=== PATIENT | female | born 1985 | race Caucasian/White ===

== ENCOUNTER 2020-01-07 07:05 | Inpatient (IN) | payer OTHER, SELFPAY ==
[2017-08-01 10:05] VITALS: BMI 29.4
[2020-01-07] VITALS (43 sets, daily range): BP systolic 81–142; BP diastolic 47–103; PULSE 70–130; RESP 18; TEMP 36.9; O2SAT 86–100; BMI 29.6
[2020-01-07] MEDS: Lactated Ringers 1,000 ML 50 ML IV (07:25)
[2020-01-07 07:52] LABS: Absolute Lymphocyte Count 2.55 X10^3/uL (0.83-4.51); Absolute Neutrophil Count 9.3 X10^3/uL (2.0-7.7); Basophil# 0.05 X10^3/uL; Basophil% 0.4 % (0-1); Eosinophil# 0.13 X10^3/uL; Hematocrit 32.5 % (37-47); Hemoglobin 10.5 g/dL (12.0-15.0); Lymphocyte # 2.55 X10^3/ul (4.0); Lymphocyte % 18.8 % (19-41); Mean Corp Hgb Conc 32.3 g/dL (32-36); Mean Corpuscular Hgb 29.7 pg (27.0-32.0); Mean Corpuscular Volume 92.1 fL (81-99); Monocyte# 1.33 X10^3/uL; Monocyte% 9.8 % (0-10); NRBC Flagged by Analyzer 0 % (0-5); Neutrophil # 9.32 X10^3/uL (2.7-7.7); Neutrophil % 68.6 % (47-70); Platelet Count 202 K/mm3 (150-450); RBC Distribution Width CV 13.1 % (11.6-14.6); RBC Distribution Width SD 43.7 fl (35.1-43.9); Red Blood Count 3.53 M/mm3 (4.2-5.4); White Blood Count 13.6 K/mm3 (4.4-11.0)
[2020-01-07] MEDS: Oxytocin 30 units/NS 500 ml 30 UNITS/500 ML IV.SOLN IV (08:05)
--- NOTE | 2020-01-07 08:18 | HP.PCM_ITS ---
History Date of Admission: 08/01/17 Final MICHELLE: 01/10/20 Final MICHELLE Source: US <20 weeks Gestational age: 39 Weeks and 4 Days History of this : This is a 34 year-old, # 39.4 weeks, here for elective IOL Medical History: Medical History (Last Updated 01/07/20 @ 08:[address] 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, antepartum (Acute) O09.893, Z14.1 Allergies No Known Allergies Allergy (Verified 08/01/17 10:06) Home Medications: Home Medications Ibuprofen [Motrin] 600 mg PO Q6H PRN #60 tablet 08/01/17 Vits [Prenatabs FA ] 1 tablet PO DAILY 08/01/17 Smoking Status: Former smoker Alcohol: None Number of Fetus(es): 1 History Past Pregnancies: Past Pregnancies Delivery Date Name GA/ Weeks Outcome Route Wt Sex Labor Length Anesthesia Delivery Location Provider FOB Expected Infant Delivery Method: Spontaneous Vaginal Review of Systems Constitutional: Denies: Anorexia Eyes: Denies: Blurred vision Cardiovascular: Denies: Chest Pain Physical Exam General: Alert, Oriented x3 Abdomen: Soft, Non Tender, Gravid Neurological: Cranial nerves II-XII grossly intact [employer]: Normal external genitalia Estimated gestational size: Appropriate for gestational size Presentation: Cephalic Cervix Dilation (cm): 3 Station: -2 Effacement (%): 60 Assessment/Plan This is a 34 year-old, G 3P2 @ 39.4 weeks, Elective IOL 1) admit to L&D 2) monitor FHR/toco 3) pitocin/AROM (clear fluid) 4) Anticipate 5) Epidural for pain mgmt
[2020-01-07] MEDS: Lactated Ringers 500 ML 999 ML IV (11:30)
[2020-01-07] MEDS: fentaNYL-bupivacaine (epidural) 100 ML BAG EPIDURAL ×2 (12:08→16:16)
[2020-01-07] MEDS: Lactated Ringers 1,000 ML 200 ML IV (14:00)
[2020-01-07] MEDS: Oxytocin 30 units/NS 500 ml 30 UNITS/500 ML IV.SOLN 334 UNITS IV (17:16)
--- NOTE | 2020-01-07 17:26 | PCM.OPRPT ---
Vaginal Delivery Maternal Presentation: Elective Induction Method of Induction: Pitocin, Amniotomy Amniotic Membrane Rupture Type: Artificial Amniotic Fluid Description: Clear Final MICHELLE: 01/10/20 Final MICHELLE Source: US <20 weeks Gestational age: 39 Weeks and 4 Days Date of Procedure: 01/07/20 Pre-Operative Diagnosis: term gestation, elective IOL Post-Operative Diagnosis: same, live male infant Surgery/ Procedure Performed: Vacuum Assisted Vaginal Delivery Type of Anesthesia: Epidural Description of Procedure: FHR deceleration to 50s with good maternal pushing efforts, decision for vacuum made- vacuum placed at flexion point and with one pull the head delivered and vacuum removed. gentle downward traction used to deliver anterior shoulder followed by rest of infant body. That was placed on the mother's chest for immediate skin the skin. Delayed cord clamping was performed. The placenta was delivered without difficulty and intact. The Mirena IUD was inserted without difficulty. Presentation: Vertex Placental Delivery Description: Spontaneous Placenta Disposition: [facility] Cord Vessel Description: 3 Vessels Cord Entanglement: None Estimated Blood Loss: 100 A gender: Male (1 minute): 8 (5 minute): 9 Episiotomy Description: None Laceration: None Medications given after delivery: IV Pitocin, - - MIRENA IUD inserted Complications: None
[2020-01-07] MEDS: Acetaminophen 325 MG Tablet PO (18:53)
[2020-01-07] MEDS: Ibuprofen 600 MG Tablet PO (23:47)
[2020-01-08 03:43] VITALS: BP 100/55; PULSE 88; RESP 16; TEMP 36.7
--- NOTE | 2020-01-08 08:00 | PN.OBGYN_ITS ---
Patient Problems: Active and Suspected Problems (Last Updated 01/07/20 @ 08:[address] 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 Patient reports good pain control. Mild lochia. voiding without difficulty. Breast-feeding without difficulty. - Physical Exam Vitals/I&O's: Vital Signs Temp Pulse Resp BP 98.1 F 88 16 100/55 L 01/08/20 03:43 01/08/20 03:43 01/08/20 03:43 01/08/20 03:43 Oxygen Delivery Method Room Air Weight: 73.482 kg Body Mass Index (BMI) 29.6 Intake and Output for Last 24 Hours 01/06/20 01/07/20 01/08/20 23:59 23:59 23:59 Intake Total 2795.80 / 2795.80 Output Total 1200 / 1200 Balance 1595.80 / 1595.80 General: Alert, Oriented x3 Abdomen: Soft, Non Tender, Non-Distended, - - fundus firm Extremities: No Calf Tenderness Laboratory Results 01/07/20 07:25: Blood Type A POSITIVE, Antibody Screen NEGATIVE Current Medications Acetaminophen (Tylenol) 1,000 mg PO Q8H PRN PRN PRN Reason: Pain Score 1-3/10 Bisacodyl (Dulcolax) 10 mg RECTAL UD PRN PRN Reason: If no BM Dibucaine (Dibucaine) 1 applic TOPICAL TID PRN PRN; Protocol PRN Reason: Discomfort Hydrocortisone (Hytone) 1 applic TOPICAL TID PRN PRN; Protocol PRN Reason: Discomfort Ibuprofen (Motrin) 600 mg PO Q6H PRN PRN PRN Reason: Pain Score 1-3/10 Last Admin: 01/07/20 23:47 Dose: 600 mg Documented by: Methylergonovine Maleate (Methergine) 0.2 mg IM X1 PRN PRN Reason: Excess bleeding/uterine atony Ondansetron HCl (Zofran) 4 mg IV Q4H PRN PRN PRN Reason: Nausea Oxycodone HCl (Oxyir) 5 - 10 mg PO Q4H PRN PRN PRN Reason: Pain Score 4-10/10 Senna/Docusate Sodium (Senokot-S, Monika-Colace) 1 - 2 tablet PO DAILY PRN PRN PRN Reason: Constipation Simethicone (Mylicon) 80 mg PO PCHS PRN PRN Reason: Indigestion/Stomach pain Sodium Chloride () 5 - 15 ml IV UD PRN PRN Reason: SALINE FLUSH Medical Necessity - Tobacco Use Smoking Status: Former smoker Assessment/Plan All Active Problems (Last Updated 01/07/20 @ 08:[address] 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
--- NOTE | 2020-01-08 08:03 | DCINST_ITS ---
Discharge Diet: No Restrictions Discharge Activity: Return to Normal Activity, May not drive while taking narcotic pain medications., May Shower May resume sexual activity in: 4-6 weeks Additional Activity Instructions:: Nothing in the vagina for 4-6 weeks. You may return to work/school in 6 weeks. Call your doctor if your incision/area has: Continuous Slow Oozing, Sudden Increased Bleeding, Increased Pain/ Swelling, Increased Redness, Foul Smelling Discharge Additional Instructions: If you experience any of the following, contact your healthcare provider. * Bleeding that soaks a pad every hour for 2 hours * Fever 100.4 or higher * Unrelieved incision or abdominal pain * Swelling, redness, discharge or bleeding from your incision or episiotomy site * Your incision begins to separate * Problems urinating (including inability to urinate or burning while urinating). * Visual changes * Severe headache * Flu-like symptoms * Pain or redness in one of both of your breasts * Pain, warmth, tenderness or swelling in your legs, especially the calf area * Frequent nausea and vomiting * Symptoms of depression or anxiety If you experience any of the following, call 911 or go to the nearest Emergency Room. * Chest pain * Problems breathing * Seizure activity * Partial or complete paralysis of a body part, slurred speech, weakness or drooping of the face, or a sudden inability to walk or hold your balance Allergies/Adverse Reactions: Allergies No Known Allergies Allergy (Verified 08/01/17 10:06) Medications to take at Discharge Vits [Prenatabs FA ] 1 tablet PO DAILY 08/01/17 Ibuprofen [Motrin] 600 mg PO Q6H PRN PRN #30 tab 01/08/20 The following prescriptions were given: Ibuprofen [Motrin] 600 mg PO Q6H PRN PRN #30 tab PRN Reason: Pain Score 1-3/10 Transmission Status: Pending to [facility]/pharmacy #[id number] When: Call to make an appointment with your doctor in 6 weeks. If you had elevated Blood Pressure or 4th degree laceration you will need to be seen in 2 weeks. Primary Care Physician: Brigette Harris MD [Primary Care Provider] - Test Results: Test results from this visit will be discussed in further detail at your follow- up appointment, if applicable.
[2020-01-08 08:30] VITALS: BP 98/66; PULSE 71; RESP 16; TEMP 36.7
[2020-01-08] MEDS: Ibuprofen 600 MG Tablet PO ×2 (09:02→17:33)
[2020-01-08 12:30] VITALS: BP 91/61; PULSE 86; RESP 16; TEMP 36.6
[2020-01-08] MEDS: Acetaminophen 500 MG Tablet 1000 MG PO (12:45)
[2020-01-08 16:00] VITALS: BP 103/42; PULSE 87; RESP 16; TEMP 36.7
== END 2020-01-08 18:40 | disposition home or self-care (01) | DRG 807 ==
PROVIDERS: Admitting Provider Obstetrics & Gynecology; PCP Internal Medicine; Referring Provider Obstetrics & Gynecology; Visit Provider Obstetrics & Gynecology
DX: O76 Abnormality in fetal heart rate and rhythm complicating labor and delivery (principal); Z37.0 Single live birth; Z14.1 Cystic fibrosis carrier; Z87.891 Personal history of nicotine dependence; Z30.430 Encounter for insertion of intrauterine contraceptive device; Z3A.39 39 weeks gestation of pregnancy
CPT/HCPCS: 59025; 59050; 85025; 86850; 86900; 86901; 99218; J7120; G0378; J3490

== ENCOUNTER → 2023-06-05 | Outpatient (CLI) | payer OTHER, SELFPAY ==
[2023-06-05 13:29] LABS: AST(SGOT) 17 U/L (15-37); Alanine Aminotransfer ALT/SGPT 29 U/L (13-56); Cholesterol 147 mg/dL (200); High Density Lipoprotein 52 mg/dL; Triglycerides 84 mg/dL; Very Low Density Lipoprotein 17 mg/dL (5-40)
== END | disposition home or self-care (01) ==
LOC: MTLAB 09:44
PROVIDERS: PCP Internal Medicine; Referring Provider Physician Assistant Medical; Visit Provider Physician Assistant Medical
DX: L70.0 Acne vulgaris (principal); Z79.899 Other long term (current) drug therapy
CPT/HCPCS: 36415; 80061; 84450; 84460